=== PATIENT | female | born 1960 | race Caucasian/White ===

== ENCOUNTER 2018-10-11 08:54 | Emergency (ER) | payer MEDICAID ==
[~2018-10-11] VITALS: Ht 167.6 cm; Wt 59.0 kg
[~2018-10-11 08:54] MED LIST: ALBUAER3 IN; DIPH25CA66 PO; FLUT250M2 IN; MON10T PO
[2018-10-11] MEDS ORDERED: IPRATROPIUM BROM 0.5 MG/2.5ML INH SOL NEB ONE (10:15)
[2018-10-11] MEDS ORDERED: methylPREDNISolone SOD SUCC 125 MG/2 ML VL IM ONE (10:15)
[2018-10-11] MEDS ORDERED: ALBUTEROL SULF 2.5 MG/0.5ML(0.5%) NEB SOLN NEB ONE (10:15)
[2018-10-11 10:19] VITALS: BP 115/83
== END 2018-10-11 11:09 | disposition home or self-care (01) ==
LOC: ER 08:54
DX: R06.02 Shortness of breath (principal); R09.89 Other specified symptoms and signs involving the circulatory and respiratory systems; F41.9 Anxiety disorder, unspecified; J44.9 Chronic obstructive pulmonary disease, unspecified; Z87.891 Personal history of nicotine dependence
CPT/HCPCS: 71046; 93005; 94640; 96372; 99283; J2930; J7611

== ENCOUNTER 2019-02-11 11:33 | Emergency (ER) | payer MEDICAID ==
[~2019-02-11] VITALS: Ht 170.2 cm; Wt 59.0 kg
[2019-02-11 12:15] VITALS: BP 130/73
== END 2019-02-11 13:55 | disposition home or self-care (01) ==
LOC: ER 11:33
DX: S92.515A Nondisplaced fracture of proximal phalanx of left lesser toe(s), initial encounter for closed fracture (principal); J44.9 Chronic obstructive pulmonary disease, unspecified; F17.210 Nicotine dependence, cigarettes, uncomplicated; Z88.1 Allergy status to other antibiotic agents; W22.8XXA Striking against or struck by other objects, initial encounter; Y93.89 Activity, other specified; Y99.8 Other external cause status; Y92.89 Other specified places as the place of occurrence of the external cause
CPT/HCPCS: 73630; 99283; L3260

== ENCOUNTER 2021-12-10 07:24 | Emergency (ER) | payer MEDICAID, OTHER ==
[~2021-12-10] VITALS: Ht 167.6 cm; Wt 59.0 kg
[2021-12-10 08:26] LABS: Basophils # (auto) 0.1 10 ^3/uL (0-0.2); Basophils % (auto) 1.4 % (0.0-2.0); Eosinophils # (auto) 0.4 10 ^3/uL (0-0.8); Eosinophils % (auto) 6.5 % (0.0-7.0); Hematocrit 43.5 % (36.0-46.0); Hemoglobin 15.2 g/dL (12.2-16.2); Lymphocytes # (auto) 1.1 10 ^3/uL (0.4-5.4); Lymphocytes % (auto) 17.4 % (10.0-50.0); Mean Corpuscular Hemoglobin 32.1 pg (28.0-32.0); Mean Corpuscular Hgb Conc. 34.9 g/dL (32.0-36.0); Mean Corpuscular Volume 91.9 fL (80.0-100.0); Monocytes # (auto) 0.3 10 ^3/uL (0-1.3); Monocytes % (auto) 5.4 % (0.0-12.0); Neutrophils # (auto) 4.2 10 ^3/uL (1.6-8.6); Neutrophils % (auto) 69.3 % (37.0-80.0); Red Blood Cells 4.74 10^6/uL (4.0-5.20); White Blood Cell 6.1 10^3/uL (4.4-10.8)
[2021-12-10 09:05] LABS: Albumin 3.7 g/dL (3.4-5.0); Calcium 8.8 mg/dL (8.5-10.1); Potassium 4.3 mmol/L (3.5-5.1)
[2021-12-10 09:09] LABS: BUN/Creatinine Ratio 17.8; Bilirubin, Total 0.4 mg/dL (0.2-1.0); Total Protein 6.9 g/dL (6.4-8.2)
[2021-12-10 09:12] VITALS: BP 149/87
[2021-12-10] MEDS ORDERED: ALBUTEROL SULF 2.5 MG/0.5ML(0.5%) NEB SOLN NEB ONE (10:15)
[2021-12-10] MEDS ORDERED: IPRATROPIUM BROM 0.5 MG/2.5ML INH SOL NEB ONE (10:15)
[2021-12-10] MEDS ORDERED: methylPREDNISolone SOD SUCC 125 MG/2 ML VL IM ONE (10:30)
[2021-12-10] MEDS ORDERED: DOXY-346 PO (10:38)
[2021-12-10] MEDS ORDERED: AMOX-277 PO (10:38)
[2021-12-10] MEDS ORDERED: PRED20TA2 PO (10:38)
[2021-12-10] MEDS ORDERED: cefTRIAXone SOD 1,000 MG VL IM ONE (10:45)
== END 2021-12-10 11:32 | disposition home or self-care (01) ==
LOC: ER 07:24
DX: J18.9 Pneumonia, unspecified organism (principal); J44.9 Chronic obstructive pulmonary disease, unspecified; F17.210 Nicotine dependence, cigarettes, uncomplicated; Z20.822 Contact with and (suspected) exposure to COVID-19
CPT/HCPCS: 36415; 71046; 80053; 83880; 84484; 85025; 87426; 87804; 93005; 94640; 96372; 99285; J0696; J2930; J7644

== ENCOUNTER 2021-12-24 07:27 | Emergency (ER) | payer MEDICAID ==
[~2021-12-24] VITALS: Ht 167.6 cm; Wt 59.0 kg
[~2021-12-24 07:27] MED LIST changes: +AMOX-277 PO; +DOXY-346 PO; +PRED20TA2 PO
[2021-12-24 09:12] LABS: Urine Bacteria NONE SEEN /hpf (None Seen); Urine Blood Negative /uL (Negative); Urine Mucus FEW (None Seen); Urine Specific Gravity 1.023 (1.001-1.035); Urine WBC 9 /hpf (0 - 5)
[2021-12-24 09:19] LABS: Basophils # (auto) 0 10 ^3/uL (0-0.2); Basophils % (auto) 0.1 % (0.0-2.0); Eosinophils # (auto) 0 10 ^3/uL (0-0.8); Hematocrit 44.8 % (36.0-46.0); Hemoglobin 15.3 g/dL (12.2-16.2); Lymphocytes # (auto) 0.7 10 ^3/uL (0.4-5.4); Lymphocytes % (auto) 5.3 % (10.0-50.0); Mean Corpuscular Hemoglobin 31.9 pg (28.0-32.0); Mean Corpuscular Hgb Conc. 34.2 g/dL (32.0-36.0); Mean Corpuscular Volume 93.3 fL (80.0-100.0); Monocytes # (auto) 0.5 10 ^3/uL (0-1.3); Monocytes % (auto) 3.6 % (0.0-12.0); Neutrophils # (auto) 11.5 10 ^3/uL (1.6-8.6); Red Cell Distribution Width 13.2 % (11.8-14.3); White Blood Cell 12.6 10^3/uL (4.4-10.8)
[2021-12-24 09:32] LABS: Calcium 9.7 mg/dL (8.5-10.1); Potassium 3.9 mmol/L (3.5-5.1)
[2021-12-24 09:38] LABS: Albumin 3.8 g/dL (3.4-5.0); BUN/Creatinine Ratio 16.5; Bilirubin, Total 0.6 mg/dL (0.2-1.0)
[2021-12-24] MEDS ORDERED: PRED10TA PO (11:14)
[2021-12-24] MEDS ORDERED: LEVO-28 PO (11:14)
[2021-12-24 13:52] VITALS: BP 127/84
== END 2021-12-24 13:54 | disposition home or self-care (01) ==
LOC: ER 07:27
DX: J44.9 Chronic obstructive pulmonary disease, unspecified (principal); N39.0 Urinary tract infection, site not specified; F17.210 Nicotine dependence, cigarettes, uncomplicated; Z88.1 Allergy status to other antibiotic agents
CPT/HCPCS: 36415; 71045; 74176; 80053; 81001; 85025; 93005

== ENCOUNTER 2022-01-17 21:46 | Inpatient (IN) | payer MEDICAID ==
[~2022-01-17] VITALS: Ht 167.6 cm; Wt 57.5 kg
[~2022-01-17 21:46] MED LIST changes: +LEVO-28 PO; +PRED10TA PO
[2022-01-17] MEDS ORDERED: ALBUTEROL SULF 2.5 MG/0.5ML(0.5%) NEB SOLN NEB ONE (22:45)
[2022-01-17] MEDS ORDERED: methylPREDNISolone SOD SUCC 125 MG/2 ML VL IV ONE (22:45)
[2022-01-17] MEDS ORDERED: IPRATROPIUM BROM 0.5 MG/2.5ML INH SOL NEB ONE (22:45)
[2022-01-17 23:52] LABS: Basophils # (auto) 0.1 10 ^3/uL (0-0.2); Eosinophils # (auto) 0.4 10 ^3/uL (0-0.8); Eosinophils % (auto) 6.1 % (0.0-7.0); Hematocrit 47.1 % (36.0-46.0); Hemoglobin 15.5 g/dL (12.2-16.2); Lymphocytes # (auto) 1.2 10 ^3/uL (0.4-5.4); Lymphocytes % (auto) 16.8 % (10.0-50.0); Mean Corpuscular Hemoglobin 31.1 pg (28.0-32.0); Mean Corpuscular Hgb Conc. 32.8 g/dL (32.0-36.0); Mean Corpuscular Volume 94.6 fL (80.0-100.0); Monocytes # (auto) 0.5 10 ^3/uL (0-1.3); Monocytes % (auto) 6.4 % (0.0-12.0); Neutrophils # (auto) 5.1 10 ^3/uL (1.6-8.6); Neutrophils % (auto) 69.7 % (37.0-80.0); Nucleated Red Blood Cells % 0.1 %; Red Blood Cells 4.97 10^6/uL (4.0-5.20); Red Cell Distribution Width 13.3 % (11.8-14.3); White Blood Cell 7.3 10^3/uL (4.4-10.8)
[2022-01-18 00:11] LABS: BUN/Creatinine Ratio 15.8; Calcium 9.4 mg/dL (8.5-10.1); Potassium 3.8 mmol/L (3.5-5.1)
[2022-01-18 00:14] LABS: Bilirubin, Total 0.3 mg/dL (0.2-1.0); Total Protein 7.7 g/dL (6.4-8.2)
[2022-01-18] MEDS ORDERED: IPRATROPIUM BROM 0.5 MG/2.5ML INH SOL NEB ONE (02:00)
[2022-01-18] MEDS ORDERED: ALBUTEROL SULF 2.5 MG/0.5ML(0.5%) NEB SOLN NEB ONE (02:00)
[2022-01-18] MEDS ORDERED: ALBUTEROL SULF 2.5 MG/0.5ML(0.5%) NEB SOLN ONE (02:02)
[2022-01-18] MEDS ORDERED: ACETAMINOPHEN 325 MG TAB PO PRN (03:00)
[2022-01-18] MEDS ORDERED: MORPHINE SULFATE INJ 2 MG/ml SYRG IV PRN (03:00)
[2022-01-18] MEDS ORDERED: predniSONE 5 MG TAB PO ONE (03:00)
[2022-01-18] MEDS ORDERED: DOCUSATE SOD 100 MG CAP PO PRN (03:00)
[2022-01-18] MEDS ORDERED: ONDANSETRON HCL 4 MG/2 ML VIAL IV PRN (03:00)
[2022-01-18] MEDS ORDERED: IPRATROPIUM BROM 0.5 MG/2.5ML INH SOL NEB SCH (06:00)
[2022-01-18] MEDS ORDERED: ALBUTEROL SULF 2.5 MG/0.5ML(0.5%) NEB SOLN NEB SCH (06:00)
[2022-01-18] MEDS: ALBUTEROL SULF 2.5 MG/0.5ML(0.5%) NEB SOLN NEB PRN ×3 (06:08→18:10)
[2022-01-18] MEDS: IPRATROPIUM BROM 0.5 MG/2.5ML INH SOL NEB PRN ×3 (06:08→18:10)
[2022-01-18] MEDS: SODIUM CHLORIDE 0.9% 1,000 ML IV SCH (09:28)
[2022-01-18 10:21] VITALS: BP 146/82
[2022-01-18] MEDS: TEMAZEPAM 15 MG CAP PO PRN (21:19)
[2022-01-18 22:00] VITALS: BP 157/84
[2022-01-19] MEDS: ALBUTEROL SULF 2.5 MG/0.5ML(0.5%) NEB SOLN NEB PRN ×2 (00:32→05:26)
[2022-01-19] MEDS: IPRATROPIUM BROM 0.5 MG/2.5ML INH SOL NEB PRN ×2 (00:32→05:26)
[2022-01-19 05:00] VITALS: BP 131/80
[2022-01-19] MEDS: LORazepam 0.5 MG TAB PO PRN ×2 (05:18→12:05)
[2022-01-19 05:38] LABS: Basophils # (auto) 0 10 ^3/uL (0-0.2); Basophils % (auto) 0.5 % (0.0-2.0); Eosinophils # (auto) 0.1 10 ^3/uL (0-0.8); Eosinophils % (auto) 0.6 % (0.0-7.0); Hematocrit 46.2 % (36.0-46.0); Hemoglobin 15.7 g/dL (12.2-16.2); Lymphocytes # (auto) 1.2 10 ^3/uL (0.4-5.4); Lymphocytes % (auto) 12.5 % (10.0-50.0); Mean Corpuscular Hemoglobin 31.4 pg (28.0-32.0); Mean Corpuscular Hgb Conc. 33.9 g/dL (32.0-36.0); Mean Corpuscular Volume 92.5 fL (80.0-100.0); Monocytes # (auto) 0.8 10 ^3/uL (0-1.3); Monocytes % (auto) 8.4 % (0.0-12.0); Neutrophils # (auto) 7.5 10 ^3/uL (1.6-8.6); Red Blood Cells 4.99 10^6/uL (4.0-5.20); Red Cell Distribution Width 12.8 % (11.8-14.3); White Blood Cell 9.6 10^3/uL (4.4-10.8)
[2022-01-19 05:46] LABS: Calcium 9.4 mg/dL (8.5-10.1); Potassium 3.9 mmol/L (3.5-5.1)
[2022-01-19 05:49] LABS: BUN/Creatinine Ratio 20.7
[2022-01-19] MEDS: SODIUM CHLORIDE 0.9% 1,000 ML IV SCH ×2 (05:50→12:20)
[2022-01-19 09:00] VITALS: BP 140/86
[2022-01-19] MEDS ORDERED: predniSONE 5 MG TAB PO ONE (10:00)
[2022-01-19] MEDS ORDERED: methylPREDNISolone SOD SUCC 40 MG/ML VL IM ONE (12:45)
[2022-01-19] MEDS ORDERED: DOXYCYCLINE 100 MG TAB/CAP PO ONE (12:45)
[2022-01-19] MEDS ORDERED: NICOTINE 21MG/24 HR TOPICAL PATCH TD ONE (12:45)
[2022-01-19 13:00] VITALS: BP 127/87
[2022-01-19] MEDS: IPRATROPIUM BROM 0.5 MG/2.5ML INH SOL NEB SCH ×3 (13:39→22:11)
[2022-01-19] MEDS: ALBUTEROL SULF 2.5 MG/0.5ML(0.5%) NEB SOLN NEB SCH ×3 (13:39→22:11)
[2022-01-19 15:03] LABS: Alcohol, Urine < 3.0 mg/dL (0-10); Amphetamine Screen, Urine NEGATIVE (NEGATIVE); Barbiturate Scree,Urine NEGATIVE (NEGATIVE); Benzodiazephine Screen, Urine NEGATIVE (NEGATIVE); Cannabinoid Screen, Urine NEGATIVE (NEGATIVE); Cocaine Screen, Urine NEGATIVE (NEGATIVE); Opiate Scree,Urine NEGATIVE (NEGATIVE); Phencyclidine Screen, Urine NEGATIVE (NEGATIVE)
[2022-01-19 16:55] VITALS: BP 129/86
[2022-01-19] MEDS: BUDESONIDE (INHALATION) 0.5 MG/2 ML NEB NEB SCH (18:37)
[2022-01-19] MEDS: TEMAZEPAM 15 MG CAP PO PRN (19:54)
[2022-01-19 22:00] VITALS: BP 119/78
[2022-01-19] MEDS: ATORVASTATIN 20 MG TAB PO SCH (22:22)
[2022-01-19] MEDS: DOXYCYCLINE 100 MG TAB/CAP PO SCH (22:22)
[2022-01-19] MEDS: FAMOTIDINE 20 MG TAB PO SCH (22:23)
[2022-01-19] MEDS: methylPREDNISolone SOD SUCC 40 MG/ML VL IV SCH (22:23)
[2022-01-20] MEDS: IPRATROPIUM BROM 0.5 MG/2.5ML INH SOL NEB SCH ×6 (02:06→22:10)
[2022-01-20] MEDS: ALBUTEROL SULF 2.5 MG/0.5ML(0.5%) NEB SOLN NEB SCH ×6 (02:06→22:10)
[2022-01-20 05:00] VITALS: BP 135/81
[2022-01-20] MEDS: SODIUM CHLORIDE 0.9% 1,000 ML IV SCH (05:00)
[2022-01-20 07:47] LABS: Magnesium 2.8 mg/dL (1.6-2.6); Potassium 4.2 mmol/L (3.5-5.1)
[2022-01-20 07:50] VITALS: BP 130/80
[2022-01-20] MEDS: HYDROcodone-ACET 5/325MG TAB PO PRN ×2 (08:07→13:11)
[2022-01-20 09:08] VITALS: BP 130/80
[2022-01-20] MEDS ORDERED: predniSONE 20 MG TAB PO ONE (10:00)
[2022-01-20] MEDS: BUDESONIDE (INHALATION) 0.5 MG/2 ML NEB NEB SCH ×2 (10:01→22:10)
[2022-01-20] MEDS: NICOTINE 21MG/24 HR TOPICAL PATCH TD SCH (10:24)
[2022-01-20] MEDS: FAMOTIDINE 20 MG TAB PO SCH ×2 (10:25→21:46)
[2022-01-20] MEDS: methylPREDNISolone SOD SUCC 40 MG/ML VL IV SCH ×2 (10:25→21:47)
[2022-01-20] MEDS: DOXYCYCLINE 100 MG TAB/CAP PO SCH ×2 (10:25→21:46)
[2022-01-20] MEDS: ENOXAPARIN SOD 40 MG/0.4 ML SYRINGE SC SCH (10:25)
[2022-01-20 13:00] VITALS: BP 135/83
[2022-01-20 17:16] VITALS: BP 137/80
[2022-01-20 20:00] VITALS: BP 130/80
[2022-01-20] MEDS: ATORVASTATIN 20 MG TAB PO SCH (21:46)
[2022-01-20] MEDS: TEMAZEPAM 15 MG CAP PO PRN (21:47)
[2022-01-21 00:31] VITALS: BP_SYST 139; BP_SYST 175; BP_DIAS 70; BP_DIAS 79
[2022-01-21] MEDS: IPRATROPIUM BROM 0.5 MG/2.5ML INH SOL NEB SCH ×5 (02:41→18:54)
[2022-01-21] MEDS: ALBUTEROL SULF 2.5 MG/0.5ML(0.5%) NEB SOLN NEB SCH ×5 (02:41→18:54)
[2022-01-21] MEDS: SODIUM CHLORIDE 0.9% 1,000 ML IV SCH ×2 (04:27→14:20)
[2022-01-21 06:00] VITALS: BP 129/79
[2022-01-21] MEDS: BUDESONIDE (INHALATION) 0.5 MG/2 ML NEB NEB SCH ×2 (06:22→18:54)
[2022-01-21 08:20] VITALS: BP 148/82
[2022-01-21] MEDS: HYDROcodone-ACET 5/325MG TAB PO PRN (08:29)
[2022-01-21 09:00] VITALS: BP 148/82
[2022-01-21] MEDS ORDERED: predniSONE 5 MG TAB PO ONE (10:00)
[2022-01-21] MEDS: DOXYCYCLINE 100 MG TAB/CAP PO SCH (10:26)
[2022-01-21] MEDS: FAMOTIDINE 20 MG TAB PO SCH (10:26)
[2022-01-21] MEDS: methylPREDNISolone SOD SUCC 40 MG/ML VL IV SCH (10:27)
[2022-01-21] MEDS: ENOXAPARIN SOD 40 MG/0.4 ML SYRINGE SC SCH (10:27)
[2022-01-21] MEDS: NICOTINE 21MG/24 HR TOPICAL PATCH TD SCH (10:28)
[2022-01-21 10:47] VITALS: BP 148/82
[2022-01-21] MEDS ORDERED: IOHEXOL 350 MG/ML 100ML IJ ONE (15:19)
[2022-01-21] MEDS ORDERED: ALBUAER3 IN (15:25)
[2022-01-21] MEDS ORDERED: DOXY-286 PO (15:27)
[2022-01-21] MEDS ORDERED: PRED20TA2 PO (15:27)
[2022-01-21] MEDS ORDERED: ATOR20TA PO (15:27)
[2022-01-21 16:14] VITALS: BP 148/90
[2022-01-22] MEDS ORDERED: predniSONE 5 MG TAB PO ONE (10:00)
[2022-01-23] MEDS ORDERED: predniSONE 5 MG TAB PO ONE (10:00)
== END 2022-01-21 19:26 | disposition home or self-care (01) | DRG 140 ==
LOC: EDBD 21:46 → ER 21:46 → OVERFLOW 01-18 02:56 → WEST WING 01-18 20:10
PROVIDERS: ADMIT Hospitalist; ATTEND Internal Medicine
DX: J44.1 Chronic obstructive pulmonary disease with (acute) exacerbation (principal); J96.01 Acute respiratory failure with hypoxia; F17.210 Nicotine dependence, cigarettes, uncomplicated; F41.9 Anxiety disorder, unspecified; I10 Essential (primary) hypertension; E78.5 Hyperlipidemia, unspecified; Z88.8 Allergy status to other drugs, medicaments and biological substances; Z91.14 Patient's other noncompliance with medication regimen; Z71.6 Tobacco abuse counseling
CPT/HCPCS: 36415; 71046; 71275; 80048; 80053; 80061; 80307; 82306; 83735; 83880; 84132; 84443; 84484; 85025; 85379; 93005; 94640; G0378